=== PATIENT | female | born 1990 | race Caucasian/White ===

== ENCOUNTER 2016-11-29 21:30 | Emergency (ER) | payer OTHER ==
[2016-11-29 21:51] VITALS: BP 130/74; PULSE 96; RESP 18; TEMP 100.4; O2SAT 97
[2016-11-29] MEDS ORDERED: predniSONE 20 MG TAB PO ONE (21:57)
[2016-11-29] MEDS ORDERED: IBUPROFEN 200 MG TAB PO ONE (21:57)
[2016-11-29] MEDS ORDERED: AZITHROMYCIN 250 MG TAB PO ONE (22:38)
--- NOTE | 2016-11-29 22:39 | UCPHY ---
[id number] Seen by Provider: 11/29/16 21:51 HPI/ROS: Chief complaint: Cough, fever, body aches HPI: 26-year-old woman with a history of asthma presenting with 2 days of worsening cough productive of yellowish sputum, fevers and chills at home, body aches and myalgias. She has a history of exercise-induced asthma and has to use an inhaler about once a year when she has an upper respiratory type symptoms. No chest pain or shortness of breath. No nausea or vomiting. Has been using inhaler tonight is feeling a little bit shaky ROS: 10 point Review of Systems is negative except as noted in the HPI. Physical exam: Gen: Awake, Alert, No Distress HEENT: Nose: no rhinorrhea Eyes: PERRLA, EOMI Mouth: Moist mucosa Neck: Supple, no JVD Chest: nontender, mild diffuse expiratory wheezing, no focal rales or rhonchi Heart: S1, S2 normal, no murmur Abd: Soft, non-tender, no guarding Back: no CVA tenderness, no midline tenderness Ext: no edema, non-tender Skin: no rash Neuro: CN II-XII intact, Sensation grossly intact, Strength 5/5 in bilateral upper and lower extremities - Personal History LMP (Females 10-55): 15-21 Days Ago Current Tetanus/Diphtheria Vaccine: Yes - Medical/Surgical History Hx Asthma: Yes Hx Chronic Respiratory Disease: No Hx Diabetes: No Hx Cardiac Disease: No Hx Renal Disease: No Hx Cirrhosis: No Hx Alcoholism: No Hx HIV/AIDS: No Hx Splenectomy or Spleen Trauma: No Other PMH: asthma,anemia, low iron - Family History Significant Family History: No pertinent family hx - Social History Smoking Status: Never smoked Constitutional: Initial Vital Signs Temperature (C) 38 C 11/29/16 21:47 Heart Rate 96 11/29/16 21:47 Respiratory Rate 18 11/29/16 21:47 Blood Pressure 130/74 H 11/29/16 21:47 O2 Sat (%) 97 11/29/16 21:47 O2 Delivery Mode Room Air Allergies/Adverse Reactions: No Known Allergies Allergy (Verified 01/28/16 07:25) Home Medications: Medication Instructions Recorded Bcp 01/28/16 AZITHROMYCIN [Z-PACK] 250 mg PO DAILY #6 tab 11/29/16 Lexapro 11/29/16 predniSONE 60 mg PO DAILY #9 tab 11/29/16 Medical Decision Making ED Course/Re-evaluation: 26-year-old with history of asthma presenting with flu-like symptoms. Influenza test is negative here. She is febrile with wheezing. With symptoms consistent with acute bronchitis. Given that she is asthmatic will cover her with antibiotics. She has gotten steroids here. Will follow up with primary care physician - Data Points Laboratory Results: 11/29/16 22:05 Influenza Typ A,B (DFA) NEGATIVE FOR FLU (NEGATIVE) Medications Given: Discontinued Medications Azithromycin (Zithromax) 500 mg PO EDNOW ONE PRN Reason: Protocol Stop: 11/29/16 22:39 Last Admin: 11/29/16 22:47 Dose: 500 mg Ibuprofen (Motrin) 400 mg PO EDNOW ONE Stop: 11/29/16 21:58 Last Admin: 11/29/16 22:07 Dose: 400 mg Prednisone (Prednisone) 60 mg PO EDNOW ONE Stop: 11/29/16 21:58 Last Admin: 11/29/16 22:07 Dose: 60 mg Departure - Departure Disposition: Home, Routine, Self-Care Clinical Impression: Acute bronchitis Condition: Good Instructions: Acute Bronchitis (ED) Additional Instructions: Take your full course of antibiotics. You may use your pleural every 2-4 hours, 2 puffs as needed for wheezing. Take your full 3 days worth of steroids. Follow up with your primary care physician in 3-4 days if not improved Referrals: ANTONIO RUIZ [Primary Care Provider] - As per Instructions Prescriptions: AZITHROMYCIN [Z-PACK] 250 mg PO DAILY #6 tab predniSONE 60 mg PO DAILY #9 tab - PQRS PQRS Measurement: NA
== END 2016-11-29 22:48 | disposition home or self-care (01) ==
LOC: CED 21:30
DX: J20.9 Acute bronchitis, unspecified (principal); J45.909 Unspecified asthma, uncomplicated
CPT/HCPCS: 87400-PO; 99214-PO; G0463-PO